=== PATIENT | female | born 1965 | race Caucasian/White ===

== ENCOUNTER 2017-07-17 18:48 | Emergency (ER) | payer SELFPAY ==
[~2017-07-17] VITALS: Ht 162.6 cm; Wt 67.6 kg
[2017-07-17 19:08] VITALS: BP 148/83; Ht 162.6 cm; Wt 67.6 kg
== END 2017-07-17 20:37 | disposition home or self-care (01) ==
LOC: ED 18:48
DX: M54.32 Sciatica, left side (principal)
CPT/HCPCS: J1100; J1885